=== PATIENT | female | born 1980 | race Caucasian/White ===

== ENCOUNTER 2023-10-20 06:38 | Day surgery (SDC) | payer OTHER, SELFPAY ==
[2023-09-19 15:15] VITALS: BMI 25.4
[2023-10-06 11:02] VITALS: BMI 25.3
[2023-10-20 07:14] VITALS: BP 123/83; PULSE 80; RESP 14; TEMP 37.1; O2SAT 99
[2023-10-20] MEDS: LACTATED RINGERS 1,000 ML 150 ML IV CONT (07:17)
--- NOTE | 2023-10-20 07:20 | PM.HPGS ---
History of Present Illness History of Present Illness Consent: Risks, benefits, and alternatives have been discussed and questions answered. Patient agrees to proceed with procedure. Chief complaint: Neoplasm Screening Narrative: Arianne Sapp is a 43 year old female presents for screening colonoscopy. Patient's current weight appetite and bowel movements are normal. Patient denies abdominal pain. She has had no bleeding. History is significant that her father had colon polyps. Review of Systems Review of Systems: All systems reviewed & are unremarkable except as noted in HPI and below PMFSH Past Medical History Medical History Anxiety Nonscarring hair loss, unspecified Screening for breast cancer Surgical History Surgical History History of colposcopy 2000 History of gynecologic surgery D&C with Novasure Ablation- dysmenorrhea/ menometrorrhagia-benign History of tubal ligation Family History Family History Other Diabetes mellitus Hypertension Social History Social History Smoking status: Never smoker Tobacco type: cigarettes Alcohol intake: current Drinks per week: 6 Substance use: never Substance use type: does not use Lack of Transportation: No Lack of Food: Never True Current Housing: I Have Housing Concerned About Future Housing: No Difficulty Paying Gas/Electric Bills: No Difficulty Paying for Meds: No Currently Unemployed: No Education: Associate Degree Difficulty w/ Childcare or Family Care: No Living arrangements: with family Occupation/Education: occupation Gender identity (if verbalized by the patient): Female Sexual Orientation (if Verbalized by the Patient): Straight or Heterosexual Spiritual care concerns: No Meds Home Medications and Allergies Home Medications Medication Instructions Recorded Confirmed Type buspirone 5 mg tablet 5 mg PO DAILY PRN Anxiety 08/30/22 10/20/23 History semaglutide (weight loss) 1.7 1.7 mg subcut DIRECTED 08/30/22 10/20/23 History mg/0.75 mL subcutaneous pen injector (Wegovy) Allergies Allergy/AdvReac Type Severity Reaction Status Date / Time No Known Allergies Allergy Unknown Verified 10/20/23 07:13 Vital Signs Vital Signs - 24 hr 10/20/23 07:14 Temperature 98.7 F Pulse Rate 80 Respiratory Rate 14 Blood Pressure 123/83 Pulse Oximetry 99 Oxygen Delivery Room Air Exam Narrative: Physical exam reveals patient to be alert. Vital signs stable. HEENT exam is unremarkable. Patient is anicteric. Lungs are clear to auscultation and percussion. Heart is without murmur or extra sounds. Abdomen bowel sounds are present soft nontender with no organomegaly. Digital external rectal exam is normal. Assessment and Plan Assessment and plan (1) Screen for colon cancer: Code(s): Z12.11 - Encounter for screening for malignant neoplasm of colon Status: Acute Assessment and Plan: Patient presents today for neoplasia screening colonoscopy. Is noted that her father had colon polyps. Further recommendations will be given after endoscopy.
--- NOTE | 2023-10-20 07:56 | WPDANESEPPF ---
Anes - Initial Pre Proc Eval Procedure: Operation Date: 10/20/23 08:30 Proposed Procedures p Screening Colonoscopy - Edgar Torres MD Date/Time: 10/20/23 07:56 Surgeon: Edgar Torres MD Pre Op Diagnosis: Neoplasm Screening Patient Data Age: 43 Gender: F Height: 1.57 m Weight: 62.1 kg Last Vital Signs Temp 98.7 F 10/20/23 07:14 Pulse 80 10/20/23 07:14 Resp 14 10/20/23 07:14 BP 123/83 10/20/23 07:14 Pulse Ox 99 10/20/23 07:14 O2 Del Method Room Air 10/20/23 07:14 Allergies Allergy/AdvReac Type Severity Reaction Status Date / Time No Known Allergies Allergy Unknown Verified 10/20/23 07:13 Home Medications Medication Instructions Recorded Confirmed Type buspirone 5 mg tablet 5 mg PO DAILY PRN Anxiety 08/30/22 10/20/23 History semaglutide (weight loss) 1.7 1.7 mg subcut DIRECTED 08/30/22 10/20/23 History mg/0.75 mL subcutaneous pen injector (Wegovy) Patient hx anesthesia problems: none Family hx anesthesia problems: none Results Review: All pre-operative results and documents have been reviewed as part of the pre-operative evaluation. [facility] [place] Past Medical History Medical History Anxiety Nonscarring hair loss, unspecified Screening for breast cancer Surgical History Surgical History History of colposcopy 2000 History of gynecologic surgery D&C with Novasure Ablation- dysmenorrhea/ menometrorrhagia-benign History of tubal ligation Family History Family History Other Diabetes mellitus Hypertension Social History Social History Smoking status: Never smoker Tobacco type: cigarettes Alcohol intake: current Drinks per week: 6 Substance use: never Substance use type: does not use Lack of Transportation: No Lack of Food: Never True Current Housing: I Have Housing Concerned About Future Housing: No Difficulty Paying Gas/Electric Bills: No Difficulty Paying for Meds: No Currently Unemployed: No Education: Associate Degree Difficulty w/ Childcare or Family Care: No Living arrangements: with family Occupation/Education: occupation Gender identity (if verbalized by the patient): Female Sexual Orientation (if Verbalized by the Patient): Straight or Heterosexual Spiritual care concerns: No Anes - Eval Final PreProcedure Day of Procedure 10/20/23 07:56 Patient weight: normal Heart: regular rate and rhythm Airway: Mallampati scale class II Neurological: alert and oriented Last oral intake: >/= 8 hours ASA classification: II Emergent: no Anesthetic plan: proceed Anesthesia type and monitoring: general GIVS and standard monitoring Results Review: All pre-operative results and documents have been reviewed as part of the pre-operative evaluation. Informed Consent: The patient's anesthetic plan and its attendant risks and benefits were discussed with the patient/family/POA. Questions were solicited and answers provided to the satisfaction of the patient/family/POA.
[2023-10-20 08:29] VITALS: BP 114/80; PULSE 78; RESP 16; O2SAT 99
[2023-10-20 08:32] VITALS: BP 122/85; PULSE 80; RESP 16; O2SAT 100
[2023-10-20 08:42] VITALS: BP 124/84; PULSE 68; RESP 20; O2SAT 100
--- NOTE | 2023-10-20 10:44 | WPDANESPN ---
Anes - Prog Note Post-Op Date/Time: 10/20/23 10:44 Cardiovascular status: normal Respiratory status: normal Airway patency: baseline Mental status: baseline Post-Op hydration status: normal Vital Signs: Last Vital Signs Temp 37.1 C 10/20/23 07:14 Pulse 68 10/20/23 08:42 Resp 20 10/20/23 08:42 BP 124/84 10/20/23 08:42 Pulse Ox 100 10/20/23 08:42 O2 Del Method Room Air 10/20/23 08:42 Pain Score (VAS): 0/10 I/O: Intake & Output 10/19/23 10/20/23 10/20/23 23:59 07:59 15:59 Intake Total 350 Balance 350 Patient Feedback: Patient satisfied with anesthetic care.
== END 2023-10-20 08:57 | disposition home or self-care (01) ==
PROVIDERS: PCP Family Medicine; Visit Provider Internal Medicine Gastroenterology
PROC: 0DJD8ZZ Inspection of Lower Intestinal Tract, Via Natural or Artificial Opening Endoscopic (ICD-10-PCS; CPT 45378; principal; 2023-10-20 08:30)
DX: Z12.11 Encounter for screening for malignant neoplasm of colon (principal); D12.5 Benign neoplasm of sigmoid colon; K64.8 Other hemorrhoids; Z83.718 Family history of other colon polyps
CPT/HCPCS: 45385

== ENCOUNTER 2023-10-20 07:00 | Outpatient (NON) | payer OTHER, SELFPAY | END 2023-10-20 07:01 | disposition home or self-care (01) | LOC: ANHLAB 10-21 09:48 | PROVIDERS: PCP Family Medicine; Visit Provider Internal Medicine Gastroenterology | DX: D12.5 Benign neoplasm of sigmoid colon (principal) | CPT/HCPCS: 88305 ==

== ENCOUNTER 2024-09-07 15:19 | Outpatient (CLI) | payer OTHER, SELFPAY ==
--- NOTE | ~2024-09-07 | MM_ITS ---
EXAMINATION: MM screening jessica BI w branden HISTORY: Screening TECHNIQUE: Craniocaudal and mediolateral oblique 3-D tomosynthesis images were obtained and synthetic 2-D images were generated. CAD analysis was submitted and interpreted. COMPARISON: Comparison to multiple prior studies sequentially, with oldest reviewed study dated 08/07. BREAST PARENCHYMAL COMPOSITION: Dense: The breasts are heterogeneously dense, which may obscure small masses FINDINGS: There is no evidence of suspicious mass, calcification, or architectural distortion to sugg est malignancy in either breast. There has been no suspicious interval change. IMPRESSION: 1. No mammographic evidence of malignancy. 2. Recommend routine screening mammography in one year. BI-RADS Category 1: Negative Reviewed, dictated and finalized at location B.
== END 2024-09-07 15:20 | disposition home or self-care (01) ==
LOC: MICIMG 15:20
PROVIDERS: PCP Student in an Organized Health Care Education/Training Program; Visit Provider Student in an Organized Health Care Education/Training Program
DX: Z12.31 Encounter for screening mammogram for malignant neoplasm of breast (principal)
CPT/HCPCS: 77063; 77067